=== PATIENT | female | born 1945 | race Caucasian/White ===

== ENCOUNTER 2020-02-22 14:48 | Emergency (ER) | payer MEDICARE ==
--- NOTE | 2020-02-22 15:08 | ER Document Report ---
ED Medical Screen (RME) - General Chief Complaint: S/S of Possible Stroke Stated Complaint: EYE PROBLEM Time Seen by Provider: 02/22/20 14:53 Notes: Patient is a 74-year-old female who presents emergency department with a chief complaint of loss of vision. 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 Patient reports having blurred vision and loss of vision starting on Tuesday. Denies headache. Denies upper or lower extremity numbness and tingling. Physical Exam - Vital signs Vitals: Temp Pulse Resp BP Pulse Ox 98 F 90 17 234/73 H 100 02/22/20 14:55 02/22/20 14:55 02/22/20 14:55 02/22/20 14:55 02/22/20 14:55 Course - Re-evaluation Re-evalutation: 02/22/20 15:06 Patient is able to see objects out of the right eye although these are extremely blurred. Patient was sent here by receivables specialist for an intraocular stroke. Patient was noted to be hypertensive in triage with a blood pressure in the 230s systolic. I have greeted and performed a rapid initial assessment of this patient. A comprehensive ED assessment and evaluation of the patient, analysis of test results and completion of the medical decision making process will be conducted by additional ED providers. 02/22/20 15:07 - Vital Signs Vital signs: Temp Pulse Resp BP Pulse Ox 98 F 90 15 234/73 H 100 02/22/20 14:55 02/22/20 14:56 02/22/20 14:56 02/22/20 14:56 02/22/20 14:56
--- NOTE | 2020-02-22 15:33 | RADIOLOGY REPORT (SQ) ---
EXAM DESCRIPTION: CT HEAD WITHOUT IMAGES COMPLETED DATE/TIME: 02/22/2020 3:23 pm REASON FOR STUDY: Loss of vision out of right eye, onset Tuesday COMPARISON: None. TECHNIQUE: Axial images acquired through the brain without intravenous contrast. Images reviewed wi th bone, brain and subdural windows. Additional sagittal and coronal reconstructions were generated. Images stored on PACS. All CT scanners at this facility use dose modulation, iterative reconstruction, and/or weight based d osing when appropriate to reduce radiation dose to as low as reasonably achievable (ALARA). [facility]: Dose Right [facility]: CareDose [facility]: Dose Right [facility]: Teradose 4D [facility]: VIRTRA SYSTEMS RADIATION DOSE: CT Rad equipment meets quality standard of care and radiation dose reduction techniq ues were employed. CTDIvol: 53.2 mGy. DLP: 884 mGy-cm. mGy. LIMITATIONS: None. FINDINGS: VENTRICLES: Normal size and contour. CEREBRUM: No masses. No hemorrhage. No midline shift. No evidence for acute infarction. Normal gra y/white matter differentiation. No areas of low density in the white matter. CEREBELLUM: No masses. No hemorrhage. No alteration of density. No evidence for acute infarction. EXTRAAXIAL SPACES: No fluid collections. No masses. ORBITS AND GLOBE: No intra- or extraconal masses. Normal contour of globe without masses. CALVARIUM: No fracture. PARANASAL SINUSES: No fluid or mucosal thickening. SOFT TISSUES: No mass or hematoma. OTHER: No other significant finding. IMPRESSION: NORMAL BRAIN CT WITHOUT CONTRAST. EVIDENCE OF ACUTE STROKE: NO. COMMENT: Quality ID # [id number]: Final reports with documentation of one or more dose reduction techniques (e.g., Automated exposure control, adjustment of the mA and/or kV according to patient size, use of iterative reconstruction technique) TECHNICAL DOCUMENTATION: JOB ID: [id number] 2010 [employer]- All Rights Reserved Reading location - IP/workstation name: [email or web address]
[2020-02-22 16:07] LABS: ABSOLUTE EOSINOPHILS # (AUTO) 0.1 10^3/uL (0.0-0.6); ABSOLUTE LYMPHOCYTES (AUTO) 2.1 10^3/uL (0.5-4.7); ABSOLUTE MONOCYTES (AUTO) 0.4 10^3/uL (0.1-1.4); RED CELL DISTRIBUTION WIDTH 13.8 % (11.5-14.0); TOTAL CELLS COUNTED % (AUTO) 100 %
[2020-02-22 16:26] LABS: ABSOLUTE NEUT (AUTO) 4.7 10^3/uL (1.7-8.2); BASOPHILS % (AUTO) 0.4 % (0-2); EOSINOPHILS % (AUTO) 1.5 % (0-6); HEMOGLOBIN 11.8 g/dL (12.0-15.5); LYMPHOCYTES % (AUTO) 28.6 % (13-45); MEAN CORPUSCULAR HEMOGLOBIN 28.4 pg (27.0-33.4); MEAN CORPUSCULAR HGB CONC 34.7 g/dL (32.0-36.0); MEAN CORPUSCULAR VOLUME 82 fl (80-97); MONOCYTES % (AUTO) 5.7 % (3-13); PLATELET COUNT 359 10^3/uL (150-450); RED BLOOD COUNT 4.16 10^6/uL (3.72-5.28); SEGMENTED NEUTROPHILS % (AUTO) 63.8 % (42-78); WHITE BLOOD COUNT 7.3 10^3/uL (4.0-10.5)
[2020-02-22 16:28] LABS: ALBUMIN 4.5 g/dL (3.5-5.0); ALKALINE PHOSPHATASE 56 U/L (38-126); ANION GAP 14 (5-19); ASPARTATE AMINO TRANSFERASE 20 U/L (14-36); BILIRUBIN,DIRECT 0.3 mg/dL (0.0-0.4); BILIRUBIN,TOTAL 0.4 mg/dL (0.2-1.3); BLOOD UREA NITROGEN 17 mg/dL (7-20); CALCIUM 9.8 mg/dL (8.4-10.2); CARBON DIOXIDE 24 mmol/L (22-30); CHLORIDE 100 mmol/L (98-107); GLUCOSE 234 mg/dL (75-110); POTASSIUM 4.6 mmol/L (3.6-5.0); TOTAL PROTEIN 7.5 g/dL (6.3-8.2)
[2020-02-22 19:50] LABS: APPEARANCE,URINE CLEAR; BILIRUBIN,URINE NEGATIVE (NEGATIVE); COLOR,URINE STRAW; GLUCOSE, URINE NEGATIVE (NEGATIVE); KETONES,URINE NEGATIVE (NEGATIVE); LEUKOCYTE ESTERASE,URINE NEGATIVE (NEGATIVE); NITRITE,URINE NEGATIVE (NEGATIVE); PROTEIN,URINE 100 mg/dL (NEGATIVE); URINE SPECIFIC GRAVITY 1.008; UROBILINOGEN,URINE NEGATIVE mg/dL (<2.0)
--- NOTE | 2020-02-22 21:45 | ER Document Report ---
ED Eye Complaint - General Chief Complaint: S/S of Possible Stroke Stated Complaint: EYE PROBLEM Time Seen by Provider: 02/22/20 14:53 Primary Care Provider: KYE SAUNDERS NP [Primary Care Provider] - Follow up as needed Mode of Arrival: Ambulatory Information source: Patient Notes: 02/22/20 14:54 - ED Nursing Note by KARL DURANT Acct Num: [id number] : 1945 Patient Age: 74 Pt presents from eye doctor for dx of intraocular stroke. Pt states tuesday she lost partial vision of her R eye and has now lost full vision on R eye at this time. Pt states she is having weakness, trouble walking, but is breathing even and unlabored. MY NOTES 74-year-old female who had some flickering in her right eye on Tuesday and awoke Tuesday with visual problems. She cannot see peripheral vision at all. She went to [facility] who evaluated her and advised she had a stroke in her right eye. She has never had any strokes in her head or her eyes before. She had ultrasound in her neck last year according to her daughter with some carotid problems this is by verbal report only. Patient also reports she has had high blood pressure and arrives here with a 230 systolic BP. She reports she has blood pressure medicine at home but did not take it. We advised her she should take her blood pressure medicine to get her blood pressure down. She reports she was praying her blood pressure down; I advised her that she should help herself in this respect as well. TRAVEL OUTSIDE OF THE [place] IN LAST 30 DAYS: No - HPI Onset: Other - last Tuesday awoke Tuesday with Sx Eye location: Right Injury: No Occurred at: Home Quality of pain: No pain Severity: None Safety glasses worn: No Contact lenses worn: No - Related Data Allergies/Adverse Reactions: codeine Allergy (Verified 02/22/20 18:52) morphine Allergy (Verified 02/22/20 18:52) Past Medical History - General Information source: Patient, Relative - Social History Smoking Status: Unknown if Ever Smoked Cigarette use (# per day): No Chew tobacco use (# tins/day): No Smoking Education Provided: No Frequency of alcohol use: None Drug Abuse: None Lives with: Family Family History: Reviewed & Not Pertinent Patient has suicidal ideation: No Patient has homicidal ideation: No - Past Medical History Cardiac Medical History: Reports: Hx Hypercholesterolemia Endocrine Medical History: Reports: Hx Diabetes Mellitus Type 2 Renal/ Medical History: Reports: Hx Kidney Stones GI Medical History: Reports: Hx Gastroesophageal Reflux Disease Past Surgical History: Reports: Hx Cholecystectomy, Hx Kidney (Renal Surgery) - stone removal, Hx Tonsillectomy, Hx Tubal Ligation Review of Systems - Review of Systems Constitutional: No symptoms reported EENT: Eye pain, Blurred vision - On the right only Cardiovascular: No symptoms reported Respiratory: No symptoms reported Gastrointestinal: No symptoms reported Genitourinary: No symptoms reported Female Genitourinary: No symptoms reported Musculoskeletal: No symptoms reported Skin: No symptoms reported Hematologic/Lymphatic: No symptoms reported Neurological/Psychological: No symptoms reported Physical Exam - Vital signs Vitals: Temp Pulse Resp BP Pulse Ox 98 F 90 17 234/73 H 100 02/22/20 14:55 02/22/20 14:55 02/22/20 14:55 02/22/20 14:55 02/22/20 14:55 Interpretation: Hypertensive - General General appearance: Appears well - Patient very angry that she had to wait and also that she had multiple attempts for phlebotomy. She reports she is ready to leave as I entered the room at 2145 - HEENT Head: Normocephalic, Atraumatic Eyes: Other - Dilated right pupil funduscopic exam with apparent ischemia. Also patient has left eye with 20/70 vision and right eye with 20/800 vision.. Peripheral vision was almost negative. Pupils: PERRL Corrective lenses worn: No Ears: Normal Sinus: Normal Nasal: Normal Pharynx: Normal Neck: Normal, Carotid bruit - No carotid bruits heard by my stethoscope on auscultation. - Respiratory Respiratory status: No respiratory distress Chest status: Nontender Breath sounds: Normal Chest palpation: Normal - Cardiovascular Rhythm: Regular Heart sounds: Normal auscultation Murmur: No - Abdominal Inspection: Normal Distension: No distension Bowel sounds: Normal Tenderness: Nontender Organomegaly: No organomegaly - Rectal Hemorrhoids: Other - deferred - Genitourinary [place] exam: Other - deferred - Back Back: Normal - Extremities General upper extremity: Normal inspection, Nontender, Normal color, Normal ROM, Normal temperature General lower extremity: Normal inspection, Nontender, Normal color, Normal ROM, Normal temperature, Normal weight bearing. No: Ban's sign - Neurological Neuro grossly intact: Yes Cognition: Normal Orientation: AAOx4 [place] Coma Scale Eye Opening: Spontaneous [place] Coma Scale Verbal: Oriented [place] Coma Scale Motor: Obeys Commands [place] Coma Scale Total: 15 Speech: Normal Motor strength normal: LUE, RUE, LLE, RLE Sensory: Normal - Psychological Associated symptoms: Angry, Anxious - Skin Skin Temperature: Warm Skin Moisture: Dry Course - Vital Signs Vital signs: Temp Pulse Resp BP Pulse Ox 98 F 76 13 183/79 H 98 02/22/20 14:55 02/22/20 19:04 02/22/20 20:01 02/22/20 20:01 02/22/20 20:01 - Laboratory Result Diagrams: 02/22/20 15:46 02/22/20 15:46 Laboratory results interpreted by me: 02/22/20 02/22/20 02/22/20 15:46 15:46 19:05 Hgb 11.8 L Hct 34.0 L Est GFR ( Amer) 54 L Est GFR (MDRD) Non-Af 45 L Glucose 234 H Urine Protein 100 H - Diagnostic Test Radiology reviewed: Reports reviewed - neg ct head Discharge - Discharge 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 Prescriptions: Aspirin [Aspirin 81 mg Chewable Tablet] 81 mg PO DAILY #1 pkg Referrals: KYE SAUNDERS, TRANSPORT ENGINEER [Primary Care Provider] - Follow up as needed
[2020-02-22 21:54] LABS: INTERNATIONAL RATION (INR) 0.96; PARTIAL THROMBOPLASTIN TIME 32.4 SEC (23.5-35.8)
[2020-02-22 22:24] VITALS: BP 178/73
== END 2020-02-22 22:15 | disposition home or self-care (01) ==
LOC: ER 14:48
DX: H47.011 Ischemic optic neuropathy, right eye (principal); H53.8 Other visual disturbances; R23.1 Pallor; I10 Essential (primary) hypertension; E11.9 Type 2 diabetes mellitus without complications; Z87.442 Personal history of urinary calculi; Z90.49 Acquired absence of other specified parts of digestive tract; Z98.51 Tubal ligation status
CPT/HCPCS: 36415; 70450; 80053; 81001; 85025; 85610; 85730; 99284